=== PATIENT | female | born 1990 | race Caucasian/White ===

== ENCOUNTER 2023-04-20 06:00 | Inpatient (IN) | payer OTHER ==
[2023-04-20 07:12] VITALS: BMI 30.4
[2023-04-20] MEDS ORDERED: Lactated Ringer's 1,000 ML IV SCH (07:47)
[2023-04-20] MEDS ORDERED: Oxytocin 30 units/NS 500 ML 500 ML IV SCH ×3 (07:47)
[2023-04-20] MEDS ORDERED: Lidocaine 1% (PF) 30 ML VIAL SC PRN (07:47)
[2023-04-20] MEDS ORDERED: HYDROcodone/Acetaminophen 5/325 mg Tablet PO PRN ×3 (07:47→19:23)
[2023-04-20] MEDS ORDERED: Ondansetron PF 4 MG/2 ML Vial IVP PRN ×3 (07:47→19:23)
[2023-04-20] MEDS ORDERED: Promethazine HCl 25 MG/ML VIAL IM PRN ×2 (07:47→16:16)
[2023-04-20] MEDS ORDERED: hydrALAZINE 20 MG/ML VIAL SLOW IVP PRN ×2 (07:47→19:23)
[2023-04-20] MEDS ORDERED: fentaNYL 50 mcg/mL 1 mL Vial SLOW IVP PRN (07:47)
[2023-04-20] MEDS ORDERED: Ibuprofen 800 MG TAB PO PRN (07:47)
[2023-04-20] MEDS ORDERED: Oxytocin 30 units/NS 500 ML 500 ML ONE (07:59)
[2023-04-20 08:05] LABS: Hematocrit 32.4 % (34.9-44.5); Hemoglobin 10.8 g/dL (12.0-15.5); Mean Corpuscular HGB CONC 33.3 g/dL (32.0-36.0); Mean Corpuscular Hemoglobin 28.9 pg (27.0-33.0); Mean Corpuscular Volume 86.6 fl (81.6-98.3); Mean Platelet Volume 10.4 fl (7.4-10.4); Platelet Count 302 10x3/uL (150-450); RBC Distribution Width 13.1 % (11.5-14.5); Red Blood Cell (RBC) Count 3.74 10x6/uL (3.90-5.03); White Blood Cell (WBC) Count 6.4 10x3/uL (3.5-10.5)
[2023-04-20 08:42] LABS: HBSAg Index 0.19 S/CO (0-0.99); Hep B Surf Ag - L&D Non-Reactive S/CO (NonReactive)
[2023-04-20 08:43] LABS: Syphilis Antibody Nonreactive (Nonreactive); Syphilis Antibody Index 0.06 S/CO (<1.00 Non-Reactive)
[2023-04-20] MEDS ORDERED: Bupivacaine 0.25% HCL 30 ML VIAL ONE (13:00)
[2023-04-20] MEDS ORDERED: ePHEDrine Sulfate 50 MG/10 ML VIAL ONE (13:00)
[2023-04-20] MEDS ORDERED: fentaNYL/Ropivacaine Epidural 100 ML ONE (15:33)
[2023-04-20] MEDS ORDERED: Moisturizing Cream (Eucerin) 113 GM JAR TOP PRN (16:16)
[2023-04-20] MEDS ORDERED: Naloxone HCl 0.4 mg/ml Vial IVP PRN ×2 (16:16)
[2023-04-20] MEDS ORDERED: diphenhydrAMINE 50 MG/ML VIAL IVP PRN (16:16)
[2023-04-20] MEDS ORDERED: Acetaminophen 325 MG TAB PO PRN (16:16)
[2023-04-20] MEDS ORDERED: ePHEDrine Sulfate 50 MG/10 ML VIAL SLOW IVP PRN (16:16)
[2023-04-20] MEDS ORDERED: Lactated Ringer's 500 ML IV PRN (16:16)
[2023-04-20] MEDS ORDERED: Communication Order-Pharmacy FS SCH (16:30)
[2023-04-20] MEDS ORDERED: fentaNYL 2 mcg/Ropivacaine 0.2% Epidural 100 ML CADD EPIDURAL SCH (16:30)
[2023-04-20] MEDS ORDERED: fentaNYL 50 mcg/mL 1 mL Vial ONE (17:36)
[2023-04-20 18:49] LABS: RapidComm Collect By CBN
[2023-04-20 18:50] LABS: RapidComm Collect By CBN; pH (Cord, venous) 7.255 (7.250-7.350)
[2023-04-20] MEDS ORDERED: Benzocaine-Menthol 82.5 ML CAN TOP PRN (19:23)
[2023-04-20] MEDS ORDERED: Boostrix 0.5 ML (Tdap) VIAL (>/=7 yrs of age) IM ONE (19:23)
[2023-04-20] MEDS ORDERED: Preparation H Ointment 28 GM TUBE PR PRN (19:23)
[2023-04-20] MEDS ORDERED: Milk Of Magnesia 30 ML UDCUP PO PRN (19:23)
[2023-04-20] MEDS ORDERED: diphenhydrAMINE 25 MG CAP PO PRN (19:23)
[2023-04-20] MEDS ORDERED: Lanolin Ointment 7 GM TUBE TOP PRN (19:23)
[2023-04-20] MEDS ORDERED: Bisacodyl 10 MG SUPP PR PRN (19:23)
[2023-04-20] MEDS: HYDROcodone/Acetaminophen 5/325 mg Tablet PO PRN (19:48)
[2023-04-20] MEDS: Docusate 100 MG CAP PO SCH (21:50)
[2023-04-20] MEDS ORDERED: Ibuprofen 800 MG TAB PO SCH (22:00)
[2023-04-21] MEDS: Ibuprofen 800 MG TAB PO SCH ×3 (02:09→20:16)
[2023-04-21] MEDS: Ferrous Sulfate 325 MG TAB PO SCH ×2 (07:30→16:08)
[2023-04-21] MEDS: Docusate 100 MG CAP PO SCH ×2 (08:08→20:16)
[2023-04-21] MEDS: Prenatal Vitamin 1 TAB PO SCH (08:08)
[2023-04-21] MEDS: HYDROcodone/Acetaminophen 5/325 mg Tablet PO PRN ×2 (11:38→20:17)
[2023-04-22] MEDS: Ibuprofen 800 MG TAB PO SCH (03:42)
[2023-04-22] MEDS: Ferrous Sulfate 325 MG TAB PO SCH (08:00)
[2023-04-22] MEDS: Prenatal Vitamin 1 TAB PO SCH (08:02)
[2023-04-22] MEDS: Docusate 100 MG CAP PO SCH (08:02)
[2023-04-22 11:54] VITALS: BP 108/70; TEMP 97.4
== END 2023-04-22 11:50 | disposition home or self-care (01) | DRG 807 ==
LOC: CSHLD 06:38 → CSHPP 21:25
PROVIDERS: ADMIT Obstetrics & Gynecology; ATTEND Obstetrics & Gynecology
PROC: 10D07Z6 Extraction of Products of Conception, Vacuum, Via Natural or Artificial Opening (ICD-10-PCS; principal; 2023-04-20)
PROC: 10907ZC Drainage of Amniotic Fluid, Therapeutic from Products of Conception, Via Natural or Artificial Opening (ICD-10-PCS; 2023-04-20)
PROC: 10H07YZ Insertion of Other Device into Products of Conception, Via Natural or Artificial Opening (ICD-10-PCS; 2023-04-20)
PROC: 0HQ9XZZ Repair Perineum Skin, External Approach (ICD-10-PCS; 2023-04-20)
DX: O99.344 Other mental disorders complicating childbirth (principal); Z37.0 Single live birth; F41.9 Anxiety disorder, unspecified; F32.A Depression, unspecified; O76 Abnormality in fetal heart rate and rhythm complicating labor and delivery; O70.0 First degree perineal laceration during delivery; Z3A.39 39 weeks gestation of pregnancy
CPT/HCPCS: 36415; 51702; 82805; 85027; 86780; 86850; 86900; 86901; 87340; J2405; J2590; J3010; S0020